=== PATIENT | female | born 1995 | race Caucasian/White ===

== ENCOUNTER 2018-02-15 23:48 | Emergency (ER) | payer OTHER, MEDICAID ==
[2018-02-16] MEDS: ACETAMINOPHEN 500 MG TAB PO (00:56)
[2018-02-16] MEDS: DEXAMETHASONE 10 MG/ML 1 ML INJ IM (03:10)
== END 2018-02-16 03:15 | disposition home or self-care (01) ==
LOC: FTE 23:48
DX: J02.9 Acute pharyngitis, unspecified (principal)
CPT/HCPCS: 87400; 87880; 96372; 99284-25